=== PATIENT | female | born 2000 | race African-American/Black ===

== ENCOUNTER 2024-01-19 20:22 | Emergency (ER) | payer SELFPAY ==
[~2024-01-19] VITALS: Ht 170.2 cm; Wt 59.0 kg
[2024-01-19 20:39] VITALS: O2SAT 100
[2024-01-19 21:29] VITALS: BP 100/65; PULSE 88; RESP 18; TEMP 98
[2024-01-19] MEDS: SODIUM CHLORIDE 0.9% 1,000 ML IV ONE (21:40)
[2024-01-19 22:01] LABS: CLARITY URINE CLEAR (CLEAR); COLOR URINE YELLOW (YELLOW); GLUCOSE URINE NEGATIVE (NEGATIVE); KETONES URINE NEGATIVE (NEGATIVE); LEUKOCYTE ESTERASE URINE NEGATIVE (NEGATIVE); NITRITE URINE NEGATIVE (NEGATIVE); OCCULT BLOOD URINE NEGATIVE (NEGATIVE); PH URINE 6.5 (4.5-8.0); PROTEIN URINE NEGATIVE (NEGATIVE)
[2024-01-19 22:13] LABS: *AMPHETAMINES SCREEN URINE NEGATIVE (NEGATIVE); *BARBITURATES SCREEN URINE NEGATIVE (NEGATIVE); *BENZODIAZEPINES SCREEN URINE NEGATIVE (NEGATIVE); *COCAINE SCREEN URINE NEGATIVE (NEGATIVE); CANNABINOID URINE SCREEN PRESUMPTIVE POSITIVE (NEGATIVE); ECSTASY MDMA SCREEN URINE NEGATIVE (NEGATIVE); METHADONE URINE SCREEN Neg (NEGATIVE); OPIATES URINE SCREEN NEGATIVE (NEGATIVE); PHENCYCLIDINE URINE SCREEN NEGATIVE (NEGATIVE)
== END 2024-01-19 22:51 | disposition left against medical advice (07) ==
LOC: ER 20:22
DX: R55 Syncope and collapse (principal)
CPT/HCPCS: 99284; 80305; 82962; 93005; 81003; J7030